=== PATIENT | female | born 1955 | race Caucasian/White ===

== ENCOUNTER 2018-02-25 17:19 | Emergency (ER) | payer BC ==
[~2018-02-25] VITALS: Ht 165.1 cm; Wt 99.8 kg
[~2018-02-25 17:19] MED LIST: CALCIT950 PO; CHOL10002 PO; DICL75ER PO; ESTR2 PO; LEVSOD112 PO; MEDR2.5 PO; Macrobid 100 M100 MG PO; OXYACE5T PO; Pyridium200 MG PO; RANI150 PO
[2018-02-25] MEDS ORDERED: GABA300 PO (18:40)
[2018-02-25] MEDS ORDERED: CEPH500 PO (18:42)
[2018-02-25] MEDS ORDERED: HYDR1TAB94 PO (18:42)
== END 2018-02-25 18:52 | disposition home or self-care (01) ==
LOC: ER 17:19
DX: S92.425A Nondisplaced fracture of distal phalanx of left great toe, initial encounter for closed fracture (principal); W22.8XXA Striking against or struck by other objects, initial encounter; Z79.899 Other long term (current) drug therapy; Z79.891 Long term (current) use of opiate analgesic
CPT/HCPCS: 73630; 99283-25

== ENCOUNTER 2019-11-04 08:57 | Emergency (ER) | payer BC ==
[~2019-11-04] VITALS: Ht 165.1 cm; Wt 97.5 kg
[~2019-11-04 08:57] MED LIST changes: +CEPH500 PO; +ESTRADIOL42.5 GM; +GABA300 PO; +HYDR1TAB94 PO; +SYNTHROID100 MCG PO
[2019-11-04 09:46] LABS: BASOPHILS ABSOLUTE AUTO 0.05 K/mm3 (0.00-0.23); BASOPHILS PERCENT AUTO 1 % (0-2); EOSINOPHILS ABSOLUTE AUTO 0.06 K/mm3 (0.00-0.68); EOSINOPHILS PERCENT AUTO 1 % (0-6); Hematocrit 43.6 % (33.0-51.0); Hemoglobin 14.1 g/dL (11.5-16.0); IMMATURE GRAN ABSOLUTE AUTO 0.02 K/mm3 (0.00-0.10); IMMATURE GRAN PERCENT AUTO 0 % (0-1); LYMPHOCYTES PERCENT AUTO 38 % (21-46); MONOCYTES ABSOLUTE AUTO 0.56 K/mm3 (0.16-1.47); MONOCYTES PERCENT AUTO 7 % (4-13); Mean Corpuscular HGB 30.7 pg (26.0-34.0); Mean Corpuscular HGB Conc 32.3 g/dL (31.5-36.5); Mean Corpuscular Volume 95 fL (80-100); Mean Platelet Volume 11.3 fL (9.1-12.4); NEUTROPHILS ABSOLUTE AUTO 4.35 K/mm3 (1.96-9.15); NEUTROPHILS PERCENT AUTO 54 % (41-73); Platelet Count 240 K/mm3 (150-400); RDW Coefficient Variation 13.2 % (11.7-14.2); RDW Standard Deviation 46.5 fL (35.1-46.3); White Blood Cell Count 8.14 K/mm3 (4.00-11.30)
[2019-11-04 09:59] LABS: Alanine Aminotransfer (ALT/SGP 26 U/L (12-78); Albumin, Blood 3.9 g/dL (3.4-5.0); Albumin/Globulin Ratio 1.1 (0.8-1.8); Alk Phos 71 U/L (50-136); Anion Gap 6 mmol/L (6-16); Aspartate Aminotrans (AST/SGOT 21 U/L (12-37); Bilirubin, Total 0.5 mg/dL (0.1-1.0); Blood Urea Nitrogen 16 mg/dL (8-24); Bun/Creatinine Ratio 22.7 (12.0-20.0); CO2, Blood 27 mmol/L (21-32); Calcium, Blood 8.1 mg/dL (8.5-10.1); Chloride, Blood 108 mmol/L (98-108); Creatinine, Blood 0.71 mg/dL (0.40-1.00); Globulin, Blood 3.6 g/dL (2.2-4.0); Glomerular Filtration Rate >60 (60-); Glucose, Blood 121 mg/dL (70-99); Potassium, Blood 3.7 mmol/L (3.5-5.5); Sodium, Blood 141 mmol/L (136-145); Total Protein, Blood 7.5 g/dL (6.4-8.2); Troponin I <0.015 ng/mL (0.000-0.040)
== END 2019-11-04 13:19 | disposition home or self-care (01) ==
LOC: ER 08:57
PROVIDERS: Emergency Medicine
DX: R07.9 Chest pain, unspecified (principal); E03.9 Hypothyroidism, unspecified; Z79.899 Other long term (current) drug therapy
CPT/HCPCS: 36415; 71046; 80053; 84484; 85025; 93005; 93010; 99285-25

== ENCOUNTER 2020-06-10 06:24 | Day surgery (SDC) | payer BC ==
[~2020-06-10] VITALS: Ht 165.1 cm; Wt 97.4 kg
[~2020-06-10 06:24] MED LIST changes: +ALBU90OI INH; +ALPR.25 PO
[2020-06-10] MEDS ORDERED: ASPIR 8181 M1 (06:46)
[2020-06-10] MEDS ORDERED: Norco 5-325 Ta1 EACH (06:49)
== END 2020-06-10 08:45 | disposition home or self-care (01) ==
LOC: ORSCSDS 06:24
PROVIDERS: Surgery
PROC: 0DJD8ZZ Inspection of Lower Intestinal Tract, Via Natural or Artificial Opening Endoscopic (ICD-10-PCS; principal; 2020-06-10 07:30)
DX: Z12.11 Encounter for screening for malignant neoplasm of colon (principal); K64.8 Other hemorrhoids; E03.9 Hypothyroidism, unspecified; Z79.899 Other long term (current) drug therapy; Z79.82 Long term (current) use of aspirin
CPT/HCPCS: J0330; J0461; J2405; J2704; J7120

== ENCOUNTER → 2022-02-07 | Outpatient (CLI) | payer BC, MEDICARE ==
[~2022-02-07] MED LIST changes: +ASPIR 8181 M1; +Norco 5-325 Ta1 EACH
== END | disposition home or self-care (01) ==
LOC: LAB SHORT 08:13 → LAB 08:13
DX: N39.0 Urinary tract infection, site not specified (principal)
CPT/HCPCS: 87086